=== PATIENT | female | born 1985 | race Caucasian/White ===

== ENCOUNTER 2018-02-13 09:52 | Emergency (ER) | payer OTHER ==
[2018-02-13] MEDS ORDERED: Sodium Chloride 0.9% 1,000 ML IV ONE (10:34)
[2018-02-13] MEDS ORDERED: Sodium Chloride 0.9% 1,000 ML ONE (10:49)
[2018-02-13 10:56] LABS: BASO % 0.2 % (0.0-2.0); EOS % 0.1 % (0.0-4.0); HEMOGLOBIN 12.7 g/dL (11.0-16.0); LYMPH # 1.3 K/uL (1.0-4.3); LYMPH % 7.4 % (20.0-40.0); MEAN CELL VOLUME 89.5 fL (81.0-99.0); MEAN CORPUSCULAR HEMOGLOBIN 30.2 pg (27.0-31.0); MEAN CORPUSCULAR HGB CONC 33.8 g/dL (33.0-37.0); MEAN PLATELET VOLUME 8.4 fL (7.2-11.7); MONO # 1.1 K/uL (0.0-0.8); MONO % 6.2 % (0.0-10.0); NEUT # 15.1 K/uL (1.8-7.0); NEUT % 86.1 % (50.0-75.0); PLATELET COUNT 263 K/uL (130-400); RBC 4.21 Mil/uL (3.80-5.20); RED CELL DISTRIBUTION WIDTH 12.9 % (11.5-14.5); WHITE BLOOD COUNT 17.6 K/uL (4.8-10.8)
[2018-02-13 11:08] LABS: ALB/GLOB RATIO 1.3 (1.0-2.1); ALBUMIN 4.1 g/dL (3.5-5.0); ALT/SGPT 28 U/L (9-52); AST/SGOT 27 U/L (14-36); BLOOD UREA NITROGEN 7 mg/dL (7-17); CALCIUM 9.5 mg/dl (8.6-10.4); GFR NON-AFRICAN AMERICAN > 60; LIPASE 35 U/L (23-300)
[2018-02-13 11:14] LABS: SQUAMOUS EPITHIAL 2 /hpf (0-5); URINE BACTERIA FEW (<OCC); URINE BILIRUBIN NEGATIVE (NEGATIVE); URINE BLOOD 3+ (NEGATIVE); URINE CLARITY Clear (Clear); URINE COLOR Red (YELLOW); URINE GLUCOSE (UA) NORMAL (Normal); URINE LEUKOCYTE ESTERASE 3+ Leu/uL (Negative); URINE PROTEIN 1+ mg/dL (NEGATIVE); URINE UROBILINOGEN NORMAL mg/dL (0.2-1.0)
[2018-02-13 11:18] VITALS: RESP 17
[2018-02-13 11:55] LABS: LYMPHOCYTE 9 % (20-40); MONOCYTE 3 % (0-10); NEUTROPHIL 88 % (50-75); PLATELET ESTIMATE NORMAL (NORMAL); TOTAL CELLS COUNTED 100
--- NOTE | 2018-02-13 12:20 | US ---
Date of service: 02/13/2018 PROCEDURE: OB Pelvic Ultrasound HISTORY: vaginal bleeding LMP: 01/04/2018 Serum beta HCG 35441 COMPARISON: None available. FINDINGS: UTERUS: Gestational sac: Single intrauterine gestation. Measures 1.4 cm compatible with estimated gestational age of 5 weeks, 4 days. Yolk sac: Measures 0.3 cm pole: [place]-rump length measures 0.2 cm compatible with estimated gestational age of Heart rate: 5 weeks, 5 days 92 bpm. age (Ultrasound estimated): 5 weeks, 5 days Barbara-gestational hemorrhage: None. Date of delivery (Ultrasound estimated) : 10/11/2018 Uterus measures 9.7 x 5.3 x 6.4 cm. Anteverted. Normal in size and appearance. CERVIX: Measures 2.6 cm. Long and closed. No cervical abnormality seen. RIGHT OVARY: Measures 3.1 x 2.4 x 3.2 cm. No mass lesion. Normal flow. LEFT OVARY: Measures 2.7 x 1.6 x 2.1 cm. No solid mass. Normal flow. FREE FLUID: None. OTHER FINDINGS: None. IMPRESSION: Single live intrauterine gestation with average ultrasound age of 5 weeks, 5 days. heart rate 92 beats per minute. Cervix long and closed.
[2018-02-13 12:42] VITALS: BP 112/74; PULSE 99; TEMP 99; O2SAT 99
--- NOTE | 2018-02-13 13:02 | C.PDOC ---
History Of Present Illness 32 y/o female currently presents to ED with c/o scant vaginal bleeding since yesterday. Patient states she has been spotting but has not changed pads. Patient admits to dysuria and low abdominal pain, denies fever, c hills, back pain or any other complaints at this time. Chief Complaint (Nursing): Female Genitourinary History Per: Patient History/Exam Limitations: no limitations Onset/Duration Of Symptoms: Days Current Symptoms Are (Timing): Still Present Past Medical History Reviewed: Historical Data, Nursing Documentation, Vital Signs Vital Signs: Last Vital Signs Temp 99 F 02/13/18 12:41 Pulse 99 H 02/13/18 12:41 Resp 17 02/13/18 12:41 BP 112/74 02/13/18 12:41 Pulse Ox 99 02/13/18 12:41 - Medical History PMH: No Chronic Diseases Surgical History: No Surg Hx Family History: States: No Known Family Hx - Social History Hx Alcohol Use: Yes Hx Substance Use: No - Immunization History Hx Tetanus Toxoid Vaccination: No Hx Influenza Vaccination: Yes Hx Pneumococcal Vaccination: No Review Of Systems Constitutional: Negative for: Fever, Chills Gastrointestinal: Positive for: Abdominal Pain. Negative for: Nausea, Vomiting Genitourinary: Positive for: Dysuria, Vaginal Bleeding. Negative for: Vaginal Discharge Musculoskeletal: Negative for: Back Pain Skin: Negative for: Rash Physical Exam - Physical Exam Appears: Non-toxic, No Acute Distress Skin: Warm, Dry, No Rash Head: Atraumatic, Normacephalic Eye(s): bilateral: Normal Inspection Oral Mucosa: Moist Neck: Normal ROM, Supple Cardiovascular: Rhythm Regular Respiratory: Normal Breath Sounds, No Rales, No Rhonchi, No Wheezing Gastrointestinal/Abdominal: Soft, No Tenderness, No Guarding, No Rebound Back: No CVA Tenderness Neurological/Psych: Oriented x3, Normal Speech, Normal Cognition ED Course And Treatment - Laboratory Results Result Diagrams: 02/13/18 10:44 02/13/18 10:44 O2 Sat by Pulse Oximetry: 99 (RA) Pulse Ox Interpretation: Normal Disposition - Disposition Referrals: [facility] Chana London, [Non-Staff] - Disposition: HOME/ ROUTINE Disposition Time: 12:20 Condition: GOOD Additional Instructions: WOLF ESTRADA, thank you for letting us take care of you today. The emergency medical care you received today was directed at your acute symptoms. If you were prescribed any medication, please fill it and take as directed. It may take several days for your symptoms to resolve. Return to the Emergency Department if your symptoms worsen, do not improve, or if you have any other problems. Please contact your doctor or call one of the physicians/clinics you have been referred to that are listed on the Patient Visit Information form that is included in your discharge packet. Bring any paperwork you were given at discharge with you along with any medications you are taking to your follow up visit. Our treatment cannot replace ongoing medical care by a primary care provider outside of the emergency department. Thank you for allowing the [facility] team to be part of your care today. Follow up with your [facility] doctor this week for re-evaluation and further management. Prescriptions: Cephalexin [cephalexin] 500 mg PO Q8 #15 cap Instructions: Urinary Tract Infection, Adult (DC), Bleeding With (DC) Forms: Chu Shu (Georgian) - Clinical Impression Clinical Impression: UTI (urinary tract infection), Threatened - Scribe Statement The provider has reviewed the documentation as recorded by the Jose Raulibchristopher Urias All medical record entries made by the Jose Raulibchristopher were at my direction and personally dictated by me. I have reviewed the chart and agree that the record accurately reflects my personal performance of the history, physical exam, medical decision making, and the department course for this patient. I have also personally directed, reviewed, and agree with the discharge instructions and disposition.
== END 2018-02-13 12:45 | disposition home or self-care (01) ==
LOC: C.ER 09:52
DX: O20.0 Threatened abortion (principal); O23.41 Unspecified infection of urinary tract in pregnancy, first trimester; Z3A.01 Less than 8 weeks gestation of pregnancy
CPT/HCPCS: 76805; 76817; 80053; 81001; 83690; 84702; 85025; 86850; 86900; 87086; 87804; 96360; 99285; J7030